=== PATIENT | female | born 1965 | race Caucasian/White ===

== ENCOUNTER 2018-01-11 20:23 | Emergency (ER) | payer BC ==
[2018-01-11 20:29] VITALS: BP 149/101; PULSE 85; RESP 20; TEMP 96.6; O2SAT 98
[2018-01-11] MEDS ORDERED: DEXAMETHASONE 20 MG/5 ML (4 MG/ML SOL) ONE (20:44)
[2018-01-11] MEDS ORDERED: LIDOCAINE HCL 2% MPF 10 ML SOL ONE ×2 (20:46→20:48)
[2018-01-11] MEDS ORDERED: APAP/HYDROCODONE 325/5 TAB PO ONE (20:49)
[2018-01-11] MEDS: LIDOCAINE HCL 1% MPF 30 SOL INFIL ONE (21:00)
[2018-01-11] MEDS: DEXAMETHASONE 20 MG/5 ML (4 MG/ML SOL) IM ONE (21:00)
[2018-01-11] MEDS ORDERED: APAP/HYDROCODONE 325/5 TAB ONE (21:28)
[2018-02-02] MEDS ORDERED: METHYLPREDNISOLONE ACETATE 80 MG/ML IM SCH (21:45)
== END 2018-01-11 21:30 | disposition home or self-care (01) ==
LOC: ED 20:23
DX: M17.12 Unilateral primary osteoarthritis, left knee (principal)
CPT/HCPCS: 96372; 99282; 99283; J1030; J1100; A6402; A9270-GY; L1830

== ENCOUNTER 2018-02-04 08:10 | Outpatient (CLI) | payer BC ==
[2018-01-11 20:29] VITALS: O2SAT 98
== END 2018-02-04 08:11 | disposition home or self-care (01) ==
LOC: CONVCARE 08:10
PROVIDERS: ATTEND Orthopaedic Surgery
DX: M25.562 Pain in left knee (principal); R93.6 Abnormal findings on diagnostic imaging of limbs
CPT/HCPCS: 73562; 73610

== ENCOUNTER 2018-02-17 08:24 | Day surgery (SDC) | payer BC ==
[2018-02-17] MEDS ORDERED: ONDANSETRON HCL 4 MG/2 ML SOL ONE ×2 (09:07→13:17)
[2018-02-17] MEDS ORDERED: PROPOFOL 500 MG/50 ML EMU IV ONE (09:07)
[2018-02-17] MEDS ORDERED: METOCLOPRAMIDE HYDROCHLORIDE 5 MG/ML SOL ONE (09:07)
[2018-02-17] MEDS ORDERED: DEXAMETHASONE 20 MG/5 ML (4 MG/ML SOL) ONE (09:07)
[2018-02-17] MEDS ORDERED: MIDAZOLAM 2 MG/2 ML SOL ONE (09:08)
[2018-02-17] MEDS ORDERED: FENTANYL 100MCG/2ML SOL ONE ×2 (09:08→10:06)
[2018-02-17] MEDS ORDERED: BUPIVACAINE HCL 0.5% MPF 10 ML SOL ONE (09:15)
[2018-02-17] MEDS: BUPIVACAINE/EPI 0.25% 50 ML SOL ONE ×2 (10:15→10:51)
[2018-02-17 14:18] VITALS: TEMP 97.1; O2SAT 93
[2018-02-17 15:53] VITALS: BP 130/78; PULSE 74; RESP 18
== END 2018-02-17 15:56 | disposition home or self-care (01) ==
LOC: SURG 08:24
PROVIDERS: ATTEND Orthopaedic Surgery
DX: M17.12 Unilateral primary osteoarthritis, left knee (principal)
CPT/HCPCS: J1100; J2250; J2405; J2765; J3010; J2704

== ENCOUNTER 2018-03-03 12:04 | Outpatient (CLI) | payer BC ==
[2018-02-17 14:18] VITALS: O2SAT 93
== END 2018-03-03 12:05 | disposition home or self-care (01) ==
LOC: CONVCARE 12:04
PROVIDERS: ATTEND Orthopaedic Surgery
DX: Z47.89 Encounter for other orthopedic aftercare (principal); Z98.890 Other specified postprocedural states

== ENCOUNTER 2018-04-28 11:13 | Outpatient (CLI) | payer BC ==
[2018-02-17 14:18] VITALS: O2SAT 93
== END 2018-04-28 11:14 | disposition home or self-care (01) ==
LOC: CONVCARE 11:13
PROVIDERS: ATTEND Orthopaedic Surgery
DX: Z47.89 Encounter for other orthopedic aftercare (principal); Z98.890 Other specified postprocedural states
CPT/HCPCS: 73562